=== PATIENT | male | born 1985 | race Caucasian/White ===

== ENCOUNTER 2018-06-15 16:23 | Emergency (ER) | payer MEDICAID, OTHER ==
[2018-06-15] MEDS ORDERED: CYCLOBENZAPRINE 10 MG TABLET PO STA (17:20)
--- NOTE | 2018-06-15 17:21 | ED Physician Documentation ---
PD HPI BACK PAIN - Stated complaint Stated Complaint: LOWER BACK PX - Chief complaint Chief Complaint: Back Pain - History obtained from History obtained from: Patient - History of Present Illness Timing - onset: Other (32yo male with left low back pain, intermittent over the last week. At rest there is no pain but really flares up when he goes from sitting to standing. No weakness/numbness/tingling in legs or saddle area. No bowel/bladder issues or fevers.) Review of Systems Constitutional: denies: Fever, Chills Skin: denies: Rash, Lesions, Abrasion (s) Musculoskeletal: denies: Neck pain Neurologic: denies: Headache, Head injury PD PAST MEDICAL HISTORY - Past Medical History Past Medical History: Yes Musculoskeletal: Chronic back pain - Present Medications Home Medications: Ambulatory Orders Medication Instructions Recorded Confirmed Cyclobenzaprine [Flexeril] 10 mg PO TID PRN #20 tablet 06/15/18 - Allergies Allergies/Adverse Reactions: Allergies Allergy/AdvReac Type Severity Reaction Status Date / Time No Known Drug Allergies Allergy Verified 06/15/18 16:28 - Social History Does the pt smoke?: No Smoking Status: Never smoker Does the pt drink ETOH?: Yes Does the pt have substance abuse?: No - Immunizations Immunizations are current?: Yes PD ED PE NORMAL - Vitals Vital signs reviewed: Yes - General General: Alert and oriented X 3, No acute distress - Back Back: No CVA TTP, No spinal TTP - Extremities Extremities: Other (The patient has equal and normal Achilles and patellar reflexes bilaterally. Normal sensation in all areas of the legs. Patient denies saddle anesthesia. Normal strength in flexion-extension at the ankles, knees, and flexion of the hips.) - Neuro Neuro: Alert and oriented X 3, Normal speech Results - Vitals Vitals: Vital Signs - 24 hr 06/15/18 16:26 Temperature 36.7 C Heart Rate 100 Respiratory 18 Rate Blood Pressure 127/73 O2 Saturation 96 Oxygen O2 Source Room air PD MEDICAL DECISION MAKING - Sepsis Event Vital Signs: Vital Signs - 24 hr 06/15/18 16:26 Temperature 36.7 C Heart Rate 100 Respiratory 18 Rate Blood Pressure 127/73 O2 Saturation 96 Oxygen O2 Source Room air Departure - Departure Disposition: 01 Home, Self Care Clinical Impression: Back pain Qualifiers: Back pain location: low back pain Chronicity: acute Back pain laterality: left Sciatica presence: without sciatica Qualified Code(s): M54.5 - Low back pain Condition: Good Record reviewed to determine appropriate education?: Yes Instructions: ED Low Back Pain Injury Prescriptions: Cyclobenzaprine [Flexeril] 10 mg PO TID PRN #20 tablet PRN Reason: Pain Comments: Call your doctor to arrange a follow-up appointment, make the next available appointment. In the interim, return anytime if worse or if new symptoms develop.
[2018-06-15 17:30] VITALS: BP 140/79
== END 2018-06-15 17:31 | disposition home or self-care (01) ==
LOC: ED 16:23
DX: M54.5 Low back pain (principal)
CPT/HCPCS: 99283; A9270

== ENCOUNTER 2019-02-11 17:25 | Outpatient (CLI) | payer OTHER ==
--- NOTE | 2019-02-11 18:27 | Ultrasound Report ---
Reason: TESTICULAR PAIN,UNSPECIFIED Procedure Date: 02/11/2019 Accession Number: [id number] / [id number] Procedure: US - Testicle w/Doppler CPT Code: FULL RESULT: EXAM: SCROTAL ULTRASOUND EXAM DATE: 02/11/2019 06:09 PM. CLINICAL HISTORY: TESTICULAR PAIN,UNSPECIFIED. COMPARISON: None available. TECHNIQUE: Real-time scanning was performed with static images obtained. Color-flow images were utilized. FINDINGS: Right: Testis: 6.2 x 2.7 x 3.4 cm. Normal size and echotexture. No mass, calcification, or abnormal blood flow. Epididymis: 1.0 x 0.9 x 1.2 cm. Normal size and echotexture. No mass. Question mild hyperemia. Hydrocele: Trace. Varicocele: None. Left: Testis: 5.8 x 2.7 x 3.9 cm. Normal size and echotexture. No mass, calcification, or abnormal blood flow. Epididymis: 0.8 x 0.9 x 1.2 cm. Normal size and echotexture. No mass. Question mild hyperemia Hydrocele: Trace. Varicocele: None. IMPRESSION: No evidence of testicular torsion. Trace bilateral hydroceles. Possible mild hyperemia of the epididymides, which do not otherwise appear enlarged or abnormally heterogeneous. Recommend correlation for possible infectious/inflammatory epididymitis. [facility]
== END 2019-02-11 17:26 | disposition home or self-care (01) ==
LOC: DI 17:25
PROVIDERS: ATTEND Nurse Practitioner Family
DX: N50.811 Right testicular pain (principal); N50.812 Left testicular pain; N43.3 Hydrocele, unspecified
CPT/HCPCS: 76870; 93975

== ENCOUNTER 2024-04-25 08:00 | Outpatient (CLI) | payer OTHER | END 2024-04-25 23:59 | disposition home or self-care (01) | LOC: LAB.WCP 08:00 | PROVIDERS: ATTEND Physician Assistant Medical | DX: J02.9 Acute pharyngitis, unspecified (principal) | CPT/HCPCS: 87070; 87077 ==